=== PATIENT | female | born 1960 | race African-American/Black ===

== ENCOUNTER 2019-07-13 10:53 | Inpatient (IN) | payer OTHER ==
--- NOTE | 2019-07-13 11:14 | HP ---
[facility] Rehab Assess/Revision - Admission History Admitted to Rehab from: [facility] Date of Admission to Rehab: 07/11/19 - Vital signs Vital Signs: Vital Signs Period Temp Pulse Resp BP Sys/Garnett Pulse Ox Last 24 Hr 97.1 F 109 20 153/98 - Findings Detox History & Physical reviewed: Yes Concur with findings: Yes Inpatient Rehab Admission - Rehab Decision to Admit Inpatient rehab admission?: Yes - Initial Determination Are CD services needed?: Yes Free of communicable disease: Yes Not in need of hospitalization: Yes - Rehab Admission Criteria Previous failed treatment: Yes Poor recovery environment: Yes Comorbidities: Yes Lacks judgement: Yes Patient is meeting Inpatient Rehab admission criteria:: Yes
[2019-07-13] MEDS ORDERED: P-EPHED 60MG/TRIPROLIDI 2.5MG TABLET PO PRN (11:20)
[2019-07-13] MEDS ORDERED: MAGNESIUM HYDROX 2400MG/30ML ORAL SUSPENSION 30 ML CUP PO PRN (11:20)
[2019-07-13] MEDS ORDERED: LOPERAMIDE HCL 2 MG CAPSULE PO PRN (11:20)
[2019-07-13] MEDS ORDERED: MAG HYDROX/AL HYDROX/SIMETH 30 ML UNIT-DOSE CUP PO PRN (11:20)
[2019-07-13] MEDS ORDERED: guaiFENesin 200 MG/10 ML 10 ML UNIT-DOSE CUPS PO PRN (11:20)
[2019-07-13] MEDS ORDERED: MAGNESIUM CITRATE 300 ML BOTTLE PO PRN (11:20)
--- NOTE | 2019-07-13 11:20 | PN ---
[facility] Progress Note (SOAP) Subjective: 58 y/o F who presented for Heroin and cocaine detox 07/03/19. Last time detox 20 yrs ago at [facility]. Relapsed shortly after release from [facility]. Cocaine use 2 bags every other day. Nasal use. First at age 19 y/o. Last use was 1 week ago. Heroin use 2 bags every other day, nasal use, first use at 36 yo, last use yesterday. No overdose as of yet. Her prior medical history was significant for CABG, Valve replacement 2013, HIV+ on treatment and no viral load, OA, HTN, CVA with some deficit that is old. Nicotine dependence, Cocaine use disorder, Opioid Dependence. No seizures, no black outs. She was admitted to detox and completed a methadone detox protocol and then transferred to rehab floor in [facility]. Then 2 days into rehab she had a pre-syncopal episode with vomitting and was send to [facility] for evaluation. Qtc from 07/03/19 done at [facility] had a ATC interval of 0.473. However, she is no longer on methadone as her detox had completed. Therefore, it is unlikely that her Qtc prolongation if due to the methadone she received while in detox. She got a full work up for syncope and only finding was carotid artery occlusion. It was most likely a vaso-vagal and carotid artery stenosis but this she will do upon discharge from rehab. 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 Vasovagal secondary to Carotid artery stenosis. She will follow up with this upon discharge. 2. Constipation: Moved bowels. Will continue senokot 3. Opioid Rehab: Continue with rehab treatment and follow up with groups and prepare for discharge and follow up with outpatient program at [facility]. Dr. Sandoval Plan: Continue Rehab.
[2019-07-13] MEDS ORDERED: MELATONIN 5 MG TABLETS PO PRN (11:21)
[2019-07-13 11:25] VITALS: BMI 17.7
[2019-07-13] MEDS: NICOTINE 7 MG/24 HOURS TOPICAL PATCH TD SCH (12:40)
[2019-07-13] MEDS: PRENATAL VITAMINS W/ FOLIC ACID TABLET (FP) PO SCH (12:40)
[2019-07-13] MEDS: hydrOXYzine PAMOATE 25 MG CAPSULE (FP) PO SCH ×3 (14:46→21:03)
[2019-07-13] MEDS: ACETAMINOPHEN 325 MG TABLET (FP) PO PRN (16:47)
[2019-07-13] MEDS ORDERED: PT OWN MED DRAWER 7, Y5N ONE (21:03)
[2019-07-13] MEDS: THIAMINE HCL 100 MG TABLET (FP) PO SCH (21:03)
[2019-07-13] MEDS: ATORVASTATIN CA 10 MG TABLET (FP) PO SCH (21:03)
[2019-07-13] MEDS: SENNOSIDES 8.8 MG/5 ML BULK BOTTLE PO SCH (21:04)
[2019-07-13] MEDS: MELATONIN 5 MG TABLETS PO SCH (21:04)
[2019-07-13] MEDS: NICOTINE POLACRILEX 2 MG GUM BUC PRN (21:05)
[2019-07-13] MEDS ORDERED: PATIENT'S OWN MEDICATION (NON-FORMULARY) (Zolpidem Tartrate [Ambien] 10 MG) PO SCH (22:00)
[2019-07-13] MEDS ORDERED: PATIENT'S OWN MEDICATION (NON-FORMULARY) (Pravastatin Sodium 40 MG) PO SCH (22:00)
[2019-07-14] MEDS: hydrOXYzine PAMOATE 25 MG CAPSULE (FP) PO SCH ×5 (06:50→21:47)
[2019-07-14] MEDS: NICOTINE POLACRILEX 2 MG GUM BUC PRN ×3 (06:50→19:48)
[2019-07-14] MEDS ORDERED: PT OWN MED DRAWER 7, Y5N ONE ×3 (08:25→21:49)
[2019-07-14] MEDS: ASPIRIN 81 MG CHEWABLE TABLETS PO SCH (10:07)
[2019-07-14] MEDS: NICOTINE 7 MG/24 HOURS TOPICAL PATCH TD SCH (10:07)
[2019-07-14] MEDS: PRENATAL VITAMINS W/ FOLIC ACID TABLET (FP) PO SCH (10:08)
[2019-07-14] MEDS: PANTOPRAZOLE 40 MG TABLET PO SCH (10:09)
[2019-07-14] MEDS: LISINOPRIL 5 MG TABLET (FP) PO SCH (10:09)
[2019-07-14] MEDS: DARUNAVIR 800 MG/COBICISTAT 150MG TABLET PO SCH (10:11)
[2019-07-14] MEDS: THIAMINE HCL 100 MG TABLET (FP) PO SCH (21:47)
[2019-07-14] MEDS: ATORVASTATIN CA 10 MG TABLET (FP) PO SCH (21:47)
[2019-07-14] MEDS: MELATONIN 5 MG TABLETS PO SCH (21:47)
[2019-07-14] MEDS: SENNOSIDES 8.8 MG/5 ML BULK BOTTLE PO SCH (22:45)
[2019-07-15] MEDS: hydrOXYzine PAMOATE 25 MG CAPSULE (FP) PO SCH ×5 (06:59→21:36)
[2019-07-15] MEDS ORDERED: PT OWN MED DRAWER 7, Y5N ONE ×2 (08:23→19:42)
[2019-07-15] MEDS: ASPIRIN 81 MG CHEWABLE TABLETS PO SCH (10:06)
[2019-07-15] MEDS: LISINOPRIL 5 MG TABLET (FP) PO SCH (10:07)
[2019-07-15] MEDS: PRENATAL VITAMINS W/ FOLIC ACID TABLET (FP) PO SCH (10:07)
[2019-07-15] MEDS: DARUNAVIR 800 MG/COBICISTAT 150MG TABLET PO SCH (10:07)
[2019-07-15] MEDS: NICOTINE 7 MG/24 HOURS TOPICAL PATCH TD SCH (10:07)
[2019-07-15] MEDS: NICOTINE POLACRILEX 2 MG GUM BUC PRN ×2 (10:08→21:39)
[2019-07-15] MEDS: PANTOPRAZOLE 40 MG TABLET PO SCH (10:08)
--- NOTE | 2019-07-15 12:11 | PN ---
[facility] Progress Note Note: Requested by nursing staff to increase Melatonin dos for patient because she is not responding to current Melatonin dose(5 mg). Will increase Melatonin dosage to 10 mg/hs prn for insomnia
[2019-07-15] MEDS: ATORVASTATIN CA 10 MG TABLET (FP) PO SCH (21:35)
[2019-07-15] MEDS: THIAMINE HCL 100 MG TABLET (FP) PO SCH (21:35)
[2019-07-15] MEDS: SENNOSIDES 8.8 MG/5 ML BULK BOTTLE PO SCH (21:35)
[2019-07-16] MEDS: hydrOXYzine PAMOATE 25 MG CAPSULE (FP) PO SCH ×5 (06:23→21:50)
[2019-07-16] MEDS: NICOTINE POLACRILEX 2 MG GUM BUC PRN ×2 (06:24→21:51)
[2019-07-16] MEDS: ASPIRIN 81 MG CHEWABLE TABLETS PO SCH (09:23)
[2019-07-16] MEDS: PANTOPRAZOLE 40 MG TABLET PO SCH (09:23)
[2019-07-16] MEDS: DARUNAVIR 800 MG/COBICISTAT 150MG TABLET PO SCH (09:23)
[2019-07-16] MEDS: PRENATAL VITAMINS W/ FOLIC ACID TABLET (FP) PO SCH (09:23)
[2019-07-16] MEDS: LISINOPRIL 5 MG TABLET (FP) PO SCH (09:24)
[2019-07-16] MEDS: NICOTINE 7 MG/24 HOURS TOPICAL PATCH TD SCH (09:25)
[2019-07-16] MEDS: MELATONIN 5 MG TABLETS PO PRN (21:48)
[2019-07-16] MEDS: ATORVASTATIN CA 10 MG TABLET (FP) PO SCH (21:48)
[2019-07-16] MEDS: THIAMINE HCL 100 MG TABLET (FP) PO SCH (21:48)
[2019-07-16] MEDS: SENNOSIDES 8.8 MG/5 ML BULK BOTTLE PO SCH (21:49)
[2019-07-17] MEDS: hydrOXYzine PAMOATE 25 MG CAPSULE (FP) PO SCH ×5 (07:16→21:41)
[2019-07-17] MEDS: ASPIRIN 81 MG CHEWABLE TABLETS PO SCH (09:57)
[2019-07-17] MEDS: LISINOPRIL 5 MG TABLET (FP) PO SCH (09:57)
[2019-07-17] MEDS: PRENATAL VITAMINS W/ FOLIC ACID TABLET (FP) PO SCH (09:57)
[2019-07-17] MEDS: NICOTINE 7 MG/24 HOURS TOPICAL PATCH TD SCH (09:57)
[2019-07-17] MEDS: DARUNAVIR 800 MG/COBICISTAT 150MG TABLET PO SCH (09:57)
[2019-07-17] MEDS: PANTOPRAZOLE 40 MG TABLET PO SCH (09:57)
--- NOTE | 2019-07-17 12:44 | CONSULT ---
[facility] Psychiatric Consult - Data Date of interview: 07/17/19 Admission source: [facility] Identifying data: Patient is a 58 year old female, , unemployed, domiciled, and is supported by [facility]. This is patient's first admission to rehab at [facility]. Patient admitted to cocaine and opiate dependence Substance Abuse History: Smoking Cessation. Smoking history: Current every day smoker. Have you smoked in the past 12 months: Yes. Aproximately how many cigarettes per day: 6. Hx Chewing Tobacco Use: No. Initiated information on smoking cessation: Yes. 'Breaking Loose' booklet given: 07/03/19. - Substance & Tx. History. Hx Alcohol Use: No. Hx Substance Use: Yes. Substance Use Type: Cocaine, Heroin. - Substances abused. Heroin. Substance route: Inhalation. Frequency: Daily. Amount used: 4 bags. Age of first use: 36. Date of last use: 07/02/19. Cocaine. Substance route: Inhalation. Frequency: Daily. Amount used: 2 bags. Age of first use: 19. Date of last use: 06/26/19. Other. Other (specify): Nicotine. Substance route: Smoking. Frequency: Daily. Amount used: 6 cigs daily Medical History: h/o stroke age 30s, CABG + Valve replacement in 2013, cow valve Cancer: NH lymphoma s/p Chemo and radiation, currently in remission for 30 yrs HIV +, hypertension, umbilical hernia. Psychiatric History: Patient denies history of psychiatric hospitalizations, outpatient care, and suicide attempt. At present, patient is experiencing difficulty sleeping despite accepting Melatonin 10mg HS. Physical/Sexual Abuse/Trauma History: denies. Mental Status Exam - Mental Status Exam Alert and Oriented to: Time, Place, Person Cognitive Function: Good Patient Appearance: Well Groomed (Thin frame) Mood: Euthymic Affect: Appropriate Patient Behavior: Appropriate, Cooperative Speech Pattern: Appropriate Voice Loudness: Normal Thought Process: Intact, Goal Oriented Thought Disorder: Not Present Hallucinations: Denies Suicidal Ideation: Denies Homicidal Ideation: Denies Insight/Judgement: Poor Sleep: Poorly Appetite: Fair Muscle strength/Tone: Normal Gait/Station: Normal Psychiatric Findings - Problem List ([place] 1, 2,3) (1) Cocaine dependence Current Visit: Yes Status: Acute (2) Insomnia Current Visit: Yes Status: Acute (3) Opioid dependence Current Visit: Yes Status: Acute Qualifiers: Substance use status: uncomplicated Qualified Code(s): F11.20 - Opioid dependence, uncomplicated (4) Nicotine dependence Current Visit: Yes Status: Chronic - Initial Treatment Plan Initial Treatment Plan: Psychoeducation provided. Rehab in progress. Patient was prescribed belsomra 5mg while in detox but stated that she is unsure if it was effective and would prefer to try an alternative medication for insomnia. Will order Remeron 7.5 mg HS. Benefits and side effects discussed. Verbal consent given.
[2019-07-17] MEDS: NICOTINE POLACRILEX 2 MG GUM BUC PRN ×2 (14:08→17:40)
[2019-07-17] MEDS: ATORVASTATIN CA 10 MG TABLET (FP) PO SCH (21:41)
[2019-07-17] MEDS: THIAMINE HCL 100 MG TABLET (FP) PO SCH (21:41)
[2019-07-17] MEDS: MIRTAZAPINE 15 MG TABLET (FP) PO SCH (21:43)
[2019-07-17] MEDS: SENNOSIDES 8.8 MG/5 ML BULK BOTTLE PO SCH (22:33)
[2019-07-18] MEDS: hydrOXYzine PAMOATE 25 MG CAPSULE (FP) PO SCH (08:01)
[2019-07-18] MEDS ORDERED: hydrOXYzine PAMOATE 25 MG CAPSULE (FP) PO PRN (08:17)
[2019-07-18] MEDS ORDERED: PT OWN MED DRAWER 7, Y5N ONE (08:57)
[2019-07-18] MEDS: PANTOPRAZOLE 40 MG TABLET PO SCH (10:11)
[2019-07-18] MEDS: PRENATAL VITAMINS W/ FOLIC ACID TABLET (FP) PO SCH (10:11)
[2019-07-18] MEDS: ASPIRIN 81 MG CHEWABLE TABLETS PO SCH (10:11)
[2019-07-18] MEDS: DARUNAVIR 800 MG/COBICISTAT 150MG TABLET PO SCH (10:12)
[2019-07-18] MEDS: NICOTINE 7 MG/24 HOURS TOPICAL PATCH TD SCH (10:12)
[2019-07-18] MEDS: LISINOPRIL 5 MG TABLET (FP) PO SCH (10:13)
[2019-07-18] MEDS: ACETAMINOPHEN 325 MG TABLET (FP) PO PRN ×2 (12:13→22:56)
[2019-07-18] MEDS: MELATONIN 5 MG TABLETS PO PRN (21:14)
[2019-07-18] MEDS: ATORVASTATIN CA 10 MG TABLET (FP) PO SCH (21:14)
[2019-07-18] MEDS: THIAMINE HCL 100 MG TABLET (FP) PO SCH (21:15)
[2019-07-18] MEDS: MIRTAZAPINE 15 MG TABLET (FP) PO SCH (21:15)
[2019-07-18] MEDS: SENNOSIDES 8.8 MG/5 ML BULK BOTTLE PO SCH (21:15)
[2019-07-19] MEDS ORDERED: PT OWN MED DRAWER 7, Y5N ONE (08:41)
[2019-07-19] MEDS: NICOTINE POLACRILEX 2 MG GUM BUC PRN (08:58)
[2019-07-19] MEDS: NICOTINE 7 MG/24 HOURS TOPICAL PATCH TD SCH (09:13)
[2019-07-19] MEDS: ASPIRIN 81 MG CHEWABLE TABLETS PO SCH (09:13)
[2019-07-19] MEDS: PRENATAL VITAMINS W/ FOLIC ACID TABLET (FP) PO SCH (09:13)
[2019-07-19] MEDS: PANTOPRAZOLE 40 MG TABLET PO SCH (09:13)
[2019-07-19] MEDS: DARUNAVIR 800 MG/COBICISTAT 150MG TABLET PO SCH (09:15)
[2019-07-19] MEDS: LISINOPRIL 5 MG TABLET (FP) PO SCH (09:15)
--- NOTE | 2019-07-19 10:37 | PN ---
[facility] Progress Note Note: Patient is scheduled for discharge tomorrow. Script for 30 days supply of Remeron 7.5 mg/hs will be electronically transmitted to [facility], [phone] [address]
--- NOTE | 2019-07-19 11:11 | DS ---
[facility] Rehab Discharge Summary - [facility] Rehab Discharge Summary Admission Date: 07/13/19 Discharge Date: 07/19/19 - History Present History: Cocaine dependence, Opioid dependence Pertinent Past History: 58 y/o F, presents for Heroin and cocaine detox. Last time detox 20 yrs ago at [facility]. Relapsed shortly after release from [facility]. Cocaine use 2 bags every other day. Nasal use. First at age 19 y/o. Heroin use 2 bags every other day, nasal use, first use at 36 yo. No overdose as of yet. No seizures, no black outs PMH: stroke age 30s, right residual deficit UE + LE, difficulty writing. Rehab for strength CABG + valve replacement in 2013, cow valve Cancer: NH lymphoma s/p Chemo and radiation, currently in remission for 30 yrs HIV +, on meds, undetectable viral load, unknown CD4 count- does not remember PCP: Dr. 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 Abdominal: +Bowel Sounds, Neurological: CN 2-12 intact - Treatment Discharge Condition: Outpatient referral accepted (Patient will return to [facility] outpatient program. Medically stable for discharge.) Hospital Course: Patient attended groups, had 1:1 with her counselor, was seen by the psychiatric service. She had one episode of vasovagal hypotension, was stablized and transported to [facility] for further evaluation. She returned and had no further me dical problems while in rehab. - Medication Discharge Medications: Ambulatory Orders Aspirin [Nirav Chewable Aspirin] 81 mg PO DAILY 07/03/19 Darunavir/Cobicistat [Prezcobix 800 mg-150 mg Tablet] 1 each PO DAILY 07/03/19 Multivitamin/Iron/Folic Acid [Centrum Adults Tablet] 1 each PO DAILY 07/03/19 Omeprazole 40 mg PO DAILY 07/03/19 Zolpidem Tartrate [Ambien] 10 mg PO HS 07/11/19 Atorvastatin Ca [Lipitor] 10 mg PO HS tablet 07/13/19 Docusate Sodium [Colace -] 100 mg PO TID capsule 07/13/19 Lisinopril [Prinivil] 2.5 mg PO DAILY tablet 07/13/19 Melatonin 5 mg PO HS PRN tab 07/13/19 Nicotine Patch [Nicoderm Patch -] 14 mg TD DAILY patch 07/13/19 Mirtazapine [Remeron -] 7.5 mg PO HS #14 tablet 07/19/19 - Medication-Assisted Treatment (MAT) Medication-Assisted Treatment (MAT): No - Discharge Instructions Diet, activity, other medical instructions: Diet: as tolerated Activity: as tolerated Other medical instructions: Please follow up with your aftercare referral and make an appointment with your medical/HIV care provider. - Diagnosis (1) Cocaine dependence Current Visit: Yes Status: Chronic (2) Opioid dependence Current Visit: Yes Status: Chronic Qualifiers: Substance use status: uncomplicated Qualified Code(s): F11.20 - Opioid dependence, uncomplicated (3) Long QT interval Current Visit: No Status: Chronic (4) HIV disease Current Visit: No Status: Chronic - Follow-up Referral Minutes to complete discharge: 20 - AMA Did Patient Leave Against Medical Advice: No
[2019-07-19] MEDS: IBUPROFEN 400 MG TABLET (FP) PO PRN ×2 (14:59→21:08)
[2019-07-19] MEDS: ATORVASTATIN CA 10 MG TABLET (FP) PO SCH (21:09)
[2019-07-19] MEDS: SENNOSIDES 8.8 MG/5 ML BULK BOTTLE PO SCH (21:11)
[2019-07-19] MEDS: MIRTAZAPINE 15 MG TABLET (FP) PO SCH (21:11)
[2019-07-19] MEDS: THIAMINE HCL 100 MG TABLET (FP) PO SCH (21:11)
[2019-07-19] MEDS: MELATONIN 5 MG TABLETS PO PRN (21:12)
[2019-07-20 07:26] VITALS: TEMP 97.9
[2019-07-20] MEDS: ASPIRIN 81 MG CHEWABLE TABLETS PO SCH (09:01)
[2019-07-20] MEDS: PANTOPRAZOLE 40 MG TABLET PO SCH (09:01)
[2019-07-20] MEDS: LISINOPRIL 5 MG TABLET (FP) PO SCH (09:01)
[2019-07-20] MEDS: DARUNAVIR 800 MG/COBICISTAT 150MG TABLET PO SCH (09:01)
[2019-07-20] MEDS: PRENATAL VITAMINS W/ FOLIC ACID TABLET (FP) PO SCH (09:01)
[2019-07-20] MEDS: NICOTINE 7 MG/24 HOURS TOPICAL PATCH TD SCH (09:02)
[2019-07-20 09:05] VITALS: BP 124/82; PULSE 125
--- NOTE | 2019-07-20 11:21 | PN ---
[facility] Progress Note Note: Pt is discharged today as scheduled. Vital Signs - 24 hr 07/19/19 07/19/19 07/20/19 14:13 20:30 00:43 Temperature Pulse Rate Respiratory 17 Rate Blood Pressure O2 Sat by Pulse 97 100 Oximetry (%) 07/20/19 07/20/19 07:00 09:04 Temperature 97.9 F Pulse Rate 104 H 125 H Respiratory 18 18 Rate Blood Pressure 104/72 124/82 O2 Sat by Pulse 98 Oximetry (%) Alert o x 3,denies s/h/i nad oob ambulating with steady gait A/P Medically stable D/C pt today follow up with CD aftercare at [facility] and primary care provider Dr. Melara at [facility] as recommended and scheduled. Reminded pt to stay safe and take all necessary precautions in the wake of the viral pandemic.
== END 2019-07-20 09:10 | disposition home or self-care (01) | DRG 895 ==
LOC: YASAS 10:53 → Y3E 11:24
PROVIDERS: ADMIT Allergy & Immunology; ATTEND Allergy & Immunology
PROC: HZ42ZZZ Group Counseling for Substance Abuse Treatment, Cognitive-Behavioral (ICD-10-PCS; principal; 2019-07-13)
DX: F11.20 Opioid dependence, uncomplicated (principal); F14.20 Cocaine dependence, uncomplicated; I25.810 Atherosclerosis of coronary artery bypass graft(s) without angina pectoris; I69.851 Hemiplegia and hemiparesis following other cerebrovascular disease affecting right dominant side; F17.210 Nicotine dependence, cigarettes, uncomplicated; Z21 Asymptomatic human immunodeficiency virus [HIV] infection status; I10 Essential (primary) hypertension; Z95.1 Presence of aortocoronary bypass graft; Z95.4 Presence of other heart-valve replacement; R94.31 Abnormal electrocardiogram [ECG] [EKG]; I65.29 Occlusion and stenosis of unspecified carotid artery; R55 Syncope and collapse; G47.00 Insomnia, unspecified; M19.90 Unspecified osteoarthritis, unspecified site; K42.9 Umbilical hernia without obstruction or gangrene; K59.00 Constipation, unspecified; Z85.79 Personal history of other malignant neoplasms of lymphoid, hematopoietic and related tissues; Z88.8 Allergy status to other drugs, medicaments and biological substances
CPT/HCPCS: 36415; 84132